=== PATIENT | male | born 1985 | race African-American/Black ===

== ENCOUNTER → 2017-01-23 | Outpatient (REF) | payer MEDICAID | LOC: M SFHCLERA 18:38 | PROVIDERS: ATTEND Physician Assistant | DX: J06.9 Acute upper respiratory infection, unspecified (principal) ==

== ENCOUNTER → 2017-10-03 | Outpatient (REF) | payer OTHER, MEDICAID | LOC: M SFHCLERA 13:08 | PROVIDERS: ATTEND Nurse Practitioner Family | DX: R53.81 Other malaise (principal) ==

== ENCOUNTER 2021-01-07 14:36 | Emergency (ER) | payer BC, MEDICAID, OTHER ==
[~2021-01-07] VITALS: Ht 190.5 cm; Wt 109.1 kg
[2021-01-07] MEDS ORDERED: CYCL5TAB PO (16:34)
[2021-01-07] MEDS ORDERED: NAPR-837 PO (16:34)
[2021-01-07 16:38] VITALS: BP 131/75
== END 2021-01-07 16:52 | disposition home or self-care (01) ==
LOC: M ED 14:36
DX: G89.29 Other chronic pain (principal); M54.5 Low back pain; Z88.0 Allergy status to penicillin; F12.20 Cannabis dependence, uncomplicated; F17.210 Nicotine dependence, cigarettes, uncomplicated

== ENCOUNTER → 2021-02-20 | Outpatient (REF) | payer BC ==
[~2021-02-20] MED LIST: CYCL5TAB PO; NAPR-837 PO
[2021-02-20 16:48] LABS: BASO # 0.1 10^3/uL (0.0-0.2); BASO % 1.6 % (0.0-1.0); EOS # 0.2 10^3/uL (0.0-0.5); EOS % 5.3 % (0.0-3.0); HEMATOCRIT 47.2 % (42.0-52.0); HEMOGLOBIN 15.1 g/dl (13.5-17.5); LYMPH # 1.9 10^3/uL (1.5-5.0); LYMPH % 43.2 % (24.0-44.0); MEAN CORPUSCULAR HEMOGLOBIN 29.6 pg (27.0-33.0); MEAN CORPUSCULAR VOLUME 92.5 fl (80.0-96.0); MONO # 0.5 10^3/uL (0.0-0.8); NEUTROPHILS # 1.8 10^3/uL (1.5-8.5); NEUTROPHILS % 39.7 % (36.0-66.0); PLATELET COUNT, AUTOMATED 191 10^3/uL (150-450); WHITE BLOOD COUNT 4.5 10^3/uL (4.0-10.0)
[2021-02-20 17:15] LABS: ALT/SGPT 34 U/L (12-78); BILIRUBIN,TOTAL 0.9 MG/DL (0.2-1.0); BLOOD UREA NITROGEN 11 MG/DL (7-18); CALCIUM LEVEL 9.2 MG/DL (8.5-10.1); CARBON DIOXIDE LEVEL 31 MEQ/L (21-32); CHLORIDE LEVEL 107 MEQ/L (98-107); CHOLESTEROL LEVEL 161 MG/DL (<200); CREATININE FOR GFR 1.01 MG/DL (0.70-1.30); GLOMERULAR FILTRATION RATE > 60.0 (>60); GLUCOSE, FASTING 88 MG/DL (70-100); HDL CHOLESTEROL 46 MG/DL (>40); LDL CHOLESTEROL 103 MG/DL (<100); NON-HDL-C 115 MG/DL; SODIUM LEVEL 143 MEQ/L (136-145); THYROID STIMULATING HORMONE 0.941 uIU/ML (0.358-3.740); TOTAL PROTEIN 6.9 GM/DL (6.4-8.2); TRIGLYCERIDES LEVEL 60 MG/DL (<150)
[2021-02-20 19:34] LABS: TOTAL 25(OH) VITAMIN D 11.6 NG/ML (30.0-100.0)
[2021-02-20 20:13] LABS: HEPATITIS C VIRUS ABY INDEX 0.1 INDEX (<0.8)
[2021-02-20 20:15] LABS: HIV 1&2 SCREEN CENTAUR NEGATIVE (NEGATIVE)
== END ==
LOC: M LAB REF 15:55
PROVIDERS: ATTEND Pediatrics
DX: E55.9 Vitamin D deficiency, unspecified (principal); Z13.220 Encounter for screening for lipoid disorders; Z11.3 Encounter for screening for infections with a predominantly sexual mode of transmission; Z76.89 Persons encountering health services in other specified circumstances